=== PATIENT | female | born 1995 | race Caucasian/White ===

== ENCOUNTER 2017-12-15 21:49 | Emergency (ER) | payer OTHER ==
[~2017-12-15] VITALS: Ht 154.9 cm; Wt 85.7 kg
[2017-12-15 21:59] VITALS: Ht 154.9 cm; Wt 85.7 kg
[2017-12-16 00:47] VITALS: BP 95/63
== END 2017-12-16 00:47 | disposition home or self-care (01) ==
LOC: ED 21:49
DX: M79.671 Pain in right foot (principal)

== ENCOUNTER 2019-05-16 08:07 | Emergency (ER) | payer OTHER ==
[~2019-05-16] VITALS: Ht 154.9 cm; Wt 76.2 kg
[2019-05-16 08:11] VITALS: Ht 154.9 cm; Wt 76.2 kg
[2019-05-16 11:23] VITALS: BP 120/82
== END 2019-05-16 11:23 | disposition home or self-care (01) ==
LOC: ED 08:07
DX: S96.912A Strain of unspecified muscle and tendon at ankle and foot level, left foot, initial encounter (principal); F17.210 Nicotine dependence, cigarettes, uncomplicated; E07.9 Disorder of thyroid, unspecified; F12.90 Cannabis use, unspecified, uncomplicated; W22.8XXA Striking against or struck by other objects, initial encounter; Y93.55 Activity, bike riding; Y92.413 State road as the place of occurrence of the external cause; Y99.8 Other external cause status
CPT/HCPCS: 99406; Q0092

== ENCOUNTER 2019-07-08 08:54 | Emergency (ER) | payer OTHER ==
[~2019-07-08] VITALS: Ht 157.5 cm; Wt 76.2 kg
[2019-07-08 08:59] VITALS: Ht 157.5 cm; Wt 76.2 kg
[2019-07-08 09:49] LABS: CALCIUM 8.8 mg/dL (8.5-10.1); CARBON DIOXIDE 30.8 mmol/L (21-32); CHLORIDE SERUM 104 mmol/L (98-107); CREATININE SERUM 0.7 mg/dL (0.6-1.0); GFR1 > 60 mL/min; GLUCOSE SERUM 87 mg/dL (74-106); SODIUM SERUM 141 mmol/L (136-145)
[2019-07-08 09:53] LABS: BASOPHIL % 0.5 % (0-2); PLATELET COUNT 331 x10^3mcL (130-400); RED CELL DISTRIBUTION WIDTH 13.7 % (11.5-14.5)
[2019-07-08 09:54] LABS: ALBUMIN 3.5 g/dL (3.4-5.0); ALKALINE PHOSPHATASE 82 U/L (46-116); ALT/SGPT 22 U/L (14-59); AST/SGOT 10 U/L (15-37); BILIRUBIN TOTAL 0.21 mg/dL (0.20-1.00); LIPASE 124 IU/L (73-393); TOTAL PROTEIN, SERUM 7.5 g/dL (6.4-8.2)
[2019-07-08 11:26] VITALS: BP 108/59
== END 2019-07-08 11:26 | disposition home or self-care (01) ==
LOC: ED 08:54
PROVIDERS: Specialist
DX: O26.891 Other specified pregnancy related conditions, first trimester (principal); R10.13 Epigastric pain; E03.9 Hypothyroidism, unspecified; Z3A.00 Weeks of gestation of pregnancy not specified
CPT/HCPCS: 36415

== ENCOUNTER 2019-07-31 07:40 | Emergency (ER) | payer OTHER ==
[~2019-07-31] VITALS: Ht 157.5 cm; Wt 81.2 kg
[2019-07-31 07:51] VITALS: Ht 157.5 cm; Wt 81.2 kg
[2019-07-31 08:42] LABS: BASOPHIL % 0.4 % (0-2); PLATELET COUNT 356 x10^3mcL (130-400); RED CELL DISTRIBUTION WIDTH 13.7 % (11.5-14.5)
[2019-07-31 09:37] VITALS: BP 113/72
== END 2019-07-31 10:25 | disposition home or self-care (01) ==
LOC: ED 07:40
PROVIDERS: Emergency Medicine
DX: O26.611 Liver and biliary tract disorders in pregnancy, first trimester (principal); E03.9 Hypothyroidism, unspecified; Z3A.08 8 weeks gestation of pregnancy
CPT/HCPCS: 36415; J7030

== ENCOUNTER 2019-08-06 15:38 | Emergency (ER) | payer OTHER ==
[~2019-08-06] VITALS: Ht 157.5 cm; Wt 84.1 kg
[2019-08-06 15:50] VITALS: Ht 157.5 cm; Wt 84.1 kg
[2019-08-06 19:30] VITALS: BP 107/64
== END 2019-08-06 19:30 | disposition home or self-care (01) ==
LOC: ED 15:38
DX: O99.511 Diseases of the respiratory system complicating pregnancy, first trimester (principal); O99.281 Endocrine, nutritional and metabolic diseases complicating pregnancy, first trimester; O99.611 Diseases of the digestive system complicating pregnancy, first trimester; E03.9 Hypothyroidism, unspecified; Z3A.08 8 weeks gestation of pregnancy; Z87.19 Personal history of other diseases of the digestive system
CPT/HCPCS: 87804; J2765